=== PATIENT | male | born 2000 | race Caucasian/White ===

== ENCOUNTER 2024-07-06 01:41 | Emergency (ER) | payer OTHER ==
[2024-07-06] MEDS: Tetracaine HCl/PF 0.5% 4 ML Bottle EYEBOTH ONE (01:54)
[2024-07-06] MEDS: Fluorescein 1 MG Ophth Strip EYERT ONE (01:54)
== END 2024-07-06 02:05 | disposition home or self-care (01) ==
LOC: MW.ED 01:41
DX: T26.91XA Corrosion of right eye and adnexa, part unspecified, initial encounter (principal)
CPT/HCPCS: 99283; J3490